=== PATIENT | male | born 1955 | race Caucasian/White ===

== ENCOUNTER 2017-09-26 00:48 | Emergency (ER) | payer OTHER, BC ==
[~2017-09-26] VITALS: Ht 177.8 cm; Wt 97.2 kg
[~2017-09-26 00:48] MED LIST: Aldactone PO; Apresoline PO; Aspirin E.C. PO; Coreg PO; Imdur PO; Norvasc PO; Zestril,Prinivil PO
[2017-09-26 00:50] VITALS: BP 145/88
[2017-09-26] MEDS ORDERED: ULTRACET1 TABLET PO (02:01)
[2017-09-26] MEDS ORDERED: VALIUM5 MG PO (02:01)
[2017-09-26] MEDS ORDERED: INDOCIN50 MG PO (02:01)
== END 2017-09-26 04:27 | disposition home or self-care (01) ==
LOC: EME 00:48
DX: S16.1XXA Strain of muscle, fascia and tendon at neck level, initial encounter (principal); S39.012A Strain of muscle, fascia and tendon of lower back, initial encounter; V49.40XA Driver injured in collision with unspecified motor vehicles in traffic accident, initial encounter; Y92.414 Local residential or business street as the place of occurrence of the external cause
CPT/HCPCS: 72040; 72100; 72125; 99281; 99283; J1885